=== PATIENT | male | born 1960 | race Caucasian/White ===

== ENCOUNTER 2018-04-04 10:36 | Emergency (ER) | payer SELFPAY ==
--- NOTE | 2018-04-04 10:48 | ED ---
Psychiatric Complaint - HPI Summary HPI Summary: A 57 y/o M presents to ED for MHE evaluation and SI. Patient states he is "at the end of his rope," and is under a lot of stress: his mother's CA returned, his father is chronically ill. Most stressing is his work situation. He was working two full-time jobs, but he was suspended from one of the jobs in March and was never told why. In July, that employer sent his record for further investigation but patient still did not have a cause for the suspension. In February, he went to court and the employer "apologized" and said his job "fell through the cracks." Due to the turmoil, pt fell behind no his bills, which he states he never has before. His car was repossessed. Patient says he is "trying to move on" but is having a hard-time emotionally and is depressed. He also had a friend commit suicide, and she had been staying with him recently. Patient had a niece who also committed suicide at some point. He was feeling angry at his friend, but is now understanding of why a person would commit suicide. He denies at SI but states being under pressure, and says he has nothing to live for and does not fear . Patient is not sleeping well, he's gotten 3 hours of sleep since three days ago. He's been drinking vodka and smoking marijuana to get to sleep. He is not eating. - History Of Current Complaint Time Seen by Provider: 04/04/18 10:40 Hx Obtained From: Patient Onset/Duration: Still Present Timing: Constant Severity Initially: Moderate Severity Currently: Severe Character: Depressed Aggravating Factor(s): Recent Stress Has Suicidal: Reports: Thoughts - Allergies/Home Medications Allergies/Adverse Reactions: Allergies Allergy/AdvReac Type Severity Reaction Status Date / Time cephalexin [From Keflex] Allergy Diaphoresis Verified 04/04/18 10:58 Unnamed Abx Allergy Diaphoresis Uncoded 04/04/18 10:58 Home Medications: Home Medications NK [No Home Medications Reported] 04/04/18 [History Confirmed 04/04/18] PMH/Surg Hx/FS Hx/Imm Hx Previously Healthy: Yes Sensory History: Denies: Hx Legally Blind Opthamlomology History: Denies: Hx Legally Blind EENT History: Denies: Hx Deafness Neurological History: Denies: Hx Dementia - Family History Known Family History: Positive: Other - multiple CA - Social History Occupation: Employed Part-time Lives: Alone Alcohol Amount: Vodka Hx Substance Use: Yes Substance Use Type: Reports: Marijuana Review of Systems Negative: Fever Negative: Cough Psychological: Other - pos: SI, not sleeping, not eating Positive: Depressed All Other Systems Reviewed And Are Negative: Yes Physical Exam - Summary Physical Exam Summary: VITAL SIGNS: Reviewed. GENERAL: Patient is a well-developed and nourished MALE who is lying comfortable in the stretcher. Patient is not in any acute respiratory distress. HEAD AND FACE: No signs of trauma. No ecchymosis, hematomas or skull depressions. No sinus tenderness. EYES: PERRLA, EOMI x 2, No injected conjunctiva, no nystagmus. EARS: Hearing grossly intact. Ear canals and tympanic membranes are within normal limits. MOUTH: Oropharynx within normal limits. NECK: Supple, trachea is midline, no adenopathy, no JVD, no carotid bruit, no c- spine tenderness, neck with full ROM. CHEST: Symmetric, no tenderness at palpation LUNGS: Clear to auscultation bilaterally. No wheezing or crackles. CVS: Regular rate and rhythm, S1 and S2 present, no murmurs or gallops appreciated. ABDOMEN: Soft, non-tender. No signs of distention. No rebound, no guarding, and no masses palpated. Bowel sounds are normal. EXTREMITIES: FROM in all major joints, no edema, no cyanosis or clubbing. NEURO: Alert and oriented x 3. No acute neurological deficits. Speech is normal and follows commands. SKIN: Dry and warm PSYCH: Depressed, crying at bedside. No homicidal thoughts or plan. No signs of psychosis or pressure speech. No tangential speech. Triage Information Reviewed: Yes Vital Signs Reviewed: Yes Diagnostics - Laboratory Result Diagrams: 04/04/18 10:54 04/04/18 10:54 Lab Statement: Any lab studies that have been ordered have been reviewed, and results considered in the medical decision making process. Course/Dx - Course Course Of Treatment: Pt is medically clear for MHE at 1106. Assessment/Plan: A 57 y/o M presents to ED for MHE evaluation and SI. Patient states he is "at the end of his rope," and is under a lot of stress: his mother' s CA returned, his father is chronically ill. Most stressing is his work situation. He was working two full-time jobs, but he was suspended from one of the jobs in March and was never told why. In July, that employer sent his record for further investigation but patient still did not have a cause for the suspension. In February, he went to court and the employer "apologized" and said his job "fell through the cracks." Due to the turmoil, pt fell behind no his bills, which he states he never has before. His car was repossessed. Patient says he is "trying to move on" but is having a hard-time emotionally and is depressed. He also had a friend commit suicide, and she had been staying with him recently. Patient had a niece who also committed suicide at some point. He was feeling angry at his friend, but is now understanding of why a person would commit suicide. He denies at SI but states being under pressure, and says he has nothing to live for and does not fear . Patient is not sleeping well, he's gotten 3 hours of sleep since three days ago. He's been drinking vodka and smoking marijuana to get to sleep. He is not eating. Blood work w/o a significant abnormality. He is medically cleared. He is awaiting for a MHE. Patient is hemodynamically stable and A+O x 3. Patient is signed out to Dr. Benson at shift change. - Differential Dx/Clinical Impression Differential Diagnosis/HQI/PQRI: Positive: Anxiety, Depression, Suicidal Ideation Provider Diagnosis: Depression, Anxiety, Suicidal ideation Discharge - Sign-Out/Discharge Documenting (check all that apply): Sign-Out Patient Signing out patient TO: Nader Benson - pending MHE - Discharge Plan Patient Education Materials: Depression (ED), Suicide Prevention (ED) Referrals: No Primary Care Phys,NOPCP [Primary Care Provider] - - Attestation Statements Document Initiated by Scribe: Yes Documenting Scribe: Omid Meeks Provider For Whom Scribe is Documenting (Include Credential): Dr. Wero Estrada MD Scribe Attestation: I, Omid Meeks, scribed for Dr. Wero Estrada MD on 04/05/18 at 0821. Scribe Documentation Reviewed: Yes Provider Attestation: The documentation as recorded by the scribe, Omid Meeks accurately reflects the service I personally performed and the decisions made by me, Dr. Wero Estrada MD
[2018-04-04 11:21] LABS: ABS Basophils 0 10^3/ul (0-0.2); ABS Eosinophils 0.1 10^3/ul (0-0.6); ABS Lymphocytes 1.3 10^3/ul (1.0-4.8); ABS Monocytes 0.4 10^3/ul (0-0.8); ABS Neutrophils 2.1 10^3/ul (1.5-7.7); ABS Nucleated RBC 0 10^3/ul; Eosinophil % 3.1 % (0-6); Hematocrit 41 % (42-52); Hemoglobin 13.6 g/dl (14.0-18.0); Lymphocyte % 33.2 % (25-47); Mean Corpuscular HGB Conc 34 g/dl (31-36); Mean Corpuscular Hemoglobin 32 pg (27-31); Mean Corpuscular Volume 94 fL (80-94); Mean Platelet Volume 8.3 um3 (7.4-10.4); Nucleated Red Blood Cells % 0.2; Platelet Count 175 10^3/ul (150-450); Red Blood Count 4.32 10^6/ul (4.00-5.40); Red Cell Distribution Width 14 % (10.5-15); White Blood Count 3.9 10^3/ul (3.5-10.8)
[2018-04-04 11:23] LABS: EGFR Non-African American 104.1 (>60)
[2018-04-04] MEDS ORDERED: Mouth Piece, Nicotine* 1 EACH CARTRIDGE INH PRN (14:04)
[2018-04-04] MEDS ORDERED: Nicotine Inhaler* 10 MG AMP INH ONE (14:04)
[2018-04-04 14:22] LABS: Urine Appearance Clear; Urine Blood Negative (Negative); Urine Color Yellow; Urine Ketones Negative (Negative); Urine Protein 1+(30 mg/dL) (Negative); Urine Red Blood Cell 3+(>10/hpf) (Absent); Urine Specific Gravity 1.024 (1.010-1.030); Urine Urobilinogen Negative (Negative); Urine White Blood Cell 3+(>20/hpf) (Absent)
[2018-04-04] MEDS ORDERED: Mouth Piece, Nicotine* 1 EACH CARTRIDGE ONE (14:45)
--- NOTE | 2018-04-04 23:49 | ED ---
Progress - Progress Note Progress Note: Patient was received as a sign out from Dr. Estrada to Dr. Benson at 1900 pending E. 0140 -- Suri Johnson states that she spoke to Dr. Benson about Dr. Beaulieu's review of the patient's case and plan to discharge at 2014. However, this is not the case. After reviewing patient's case, Dr. Benson would like a re- evaluation of the patient's mental health and his disposition plan. Patient will be signed out to Dr. Estrada at 0700 for shift change. - Consult/PCP Time Called: 14:00 Course/Dx - Course Course Of Treatment: Patient was received as a sign out from Dr. Estrada to Dr. Benson at 1900 pending E. 0140 -- Suri Johnson states that she spoke to Dr. Benson about Dr. Beaulieu's review of the patient's case and plan to discharge at 2014. However, this is not the case. After reviewing patient's case , Dr. Benson would like a re-evaluation of the patient's mental health and his disposition plan. Patient will be signed out to Dr. Estrada at 0700 for shift change. - Diagnoses Provider Diagnoses: Depression, Anxiety, Suicidal ideation Discharge - Sign-Out/Discharge Documenting (check all that apply): Sign-Out Patient Signing out patient TO: Wero Estrada Receiving patient FROM: Nader Benson - Discharge Plan Patient Education Materials: Depression (ED), Suicide Prevention (ED) Referrals: No Primary Care Phys,NOPCP [Primary Care Provider] - - Attestation Statements Document Initiated by Scribe: Yes Documenting Scribe: Duke Salinas Provider For Whom Brandoibshannon is Documenting (Include Credential): Nader Benson MD Scribe Attestation: Duke Mora , scribed for Nader Benson MD on 04/05/18 at 0641.
--- NOTE | 2018-04-05 09:25 | ED ---
Progress - Progress Note Progress Note: Receiving sign out from Dr. Benson. Patient will be discharged home by Dr. Zaldivar with a final diagnosis of depression. He is to follow up with [facility]. Course/Dx - Diagnoses Provider Diagnoses: Depression Discharge - Sign-Out/Discharge Documenting (check all that apply): Patient Departure - Discharge, Receiving Sign-Out Receiving patient FROM: Nader Benson - Discharge Plan Condition: Stable Disposition: HOME Patient Education Materials: Depression (ED), Suicide Prevention (ED) Referrals: [facility]YSICIAN REFERRAL [Outside] [facility] [[employer]BUSINESS, APPLICATION, OTHER] - - Attestation Statements Document Initiated by Scribe: Yes Documenting Scribe: Taylor Aleln Provider For Whom Scribe is Documenting (Include Credential): Wero Estrada MD Scribe Attestation: Taylor Mora, scribed for Wero Estrada MD on 04/05/18 at 0925.
[2018-04-05 09:57] VITALS: BP 152/93
== END 2018-04-05 09:55 | disposition home or self-care (01) ==
LOC: ED 10:36
DX: F32.9 Major depressive disorder, single episode, unspecified (principal); F41.9 Anxiety disorder, unspecified; R45.851 Suicidal ideations; Z88.3 Allergy status to other anti-infective agents
CPT/HCPCS: 36415; 80053; 80307; 80320; 80329; 81003; 81015; 84443; 85025; 87086; 99285; A9270-GY; G0480

== ENCOUNTER 2018-08-04 13:19 | Inpatient (IN) | payer OTHER ==
[2018-08-04 14:04] LABS: ABS Basophils 0 10^3/ul (0-0.2); ABS Eosinophils 0.3 10^3/ul (0-0.6); ABS Monocytes 0.9 10^3/ul (0-0.8); ABS Neutrophils 5.4 10^3/ul (1.5-7.7); ABS Nucleated RBC 0 10^3/ul; Eosinophil % 3.3 %; Hematocrit 27 % (42-52); Lymphocyte % 23.5 %; Mean Corpuscular HGB Conc 34 g/dl (31-36); Mean Corpuscular Hemoglobin 31 pg (27-31); Mean Corpuscular Volume 91 fL (80-94); Mean Platelet Volume 8.1 fL (7.4-10.4); Nucleated Red Blood Cells % 0; Platelet Count 185 10^3/ul (150-450); Red Blood Count 2.93 10^6/ul (4.00-5.40); Red Cell Distribution Width 14 % (10.5-15); White Blood Count 8.6 10^3/ul (3.5-10.8)
[2018-08-04 14:18] LABS: Activated Partial Thrombo Time 26.8 seconds (26.0-36.3); INR 1.06 (0.77-1.02)
[2018-08-04] MEDS ORDERED: NS 0.9% 1000 ML** 1,000 ML IV ONE (14:21)
[2018-08-04 14:24] LABS: Albumin 3.3 g/dL (3.2-5.2); BUN/Creatinine Ratio 23.6 (8-20); Calcium 8.4 mg/dL (8.6-10.3); EGFR African American 106.6 (>60); EGFR Non-African American 88.1 (>60); Globulin 3.2 g/dL (2-4); Total Bilirubin 0.2 mg/dL (0.2-1.0); Total Protein 6.5 g/dL (6.4-8.9)
--- NOTE | 2018-08-04 14:43 | ED ---
Abdominal Pain/Male - HPI Summary HPI Summary: 57 y/o incarcerated male presents today complaining of explosive diarrhea, abdominal pain and bright red blood per rectum. He states these symptoms started yesterday evening after court, though he does endorse noting mild abdominal soreness yesterday morning, which he had attributed to doing sit-ups. The had multiple episodes of bloody diarrhea through the night. He describes his BM as soft stool mixed with blood. He believes he was either having vivid dreams or hallucinations during the night as well. The diarrhea and the vivid dreams all resolved at 5:30am today. - History of Current Complaint Chief Complaint: EDGIBleed Stated Complaint: LOW BLOOD COUNT Time Seen by Provider: 08/04/18 13:50 Hx Obtained From: Patient Onset/Duration: Sudden Onset - last night at 7:00pm Timing: Intermittent Severity Initially: Moderate Severity Currently: None Pain Intensity: 0 Pain Scale Used: 0-10 Numeric Location: Diffuse Radiates: No Character: Dull Aggravating Factor(s): Other: - Now, just palpation of the abdomen causes pain Alleviating Factor(s): Nothing Associated Signs And Symptoms: Positive: Blood in Stool, Diarrhea. Negative: Fever, Constipation, Urinary Symptoms, Decreased Appetite, Nausea, Vomiting - Risk Factors Testicular Torsion: Negative Cardiac Risk Factors: Negative - Allergies/Home Medications Allergies/Adverse Reactions: Allergies Allergy/AdvReac Type Severity Reaction Status Date / Time cephalexin [From Keflex] Allergy Diaphoresis Verified 04/04/18 10:58 Unnamed Abx Allergy Diaphoresis Uncoded 04/04/18 10:58 PMH/Surg Hx/FS Hx/Imm Hx Previously Healthy: Yes - history of heavy alcohol consumption Endocrine/Hematology History: Denies: Hx Blood Disorders Sensory History: Denies: Hx Legally Blind, Hx Deafness Opthamlomology History: Denies: Hx Legally Blind Neurological History: Denies: Hx Dementia Psychiatric History: Reports: Hx of Violent Episodes Against Others Denies: Hx Eating Disorder Infectious Disease History: No Infectious Disease History: Denies: Traveled Outside the [place] in Last 30 Days - Family History Known Family History: Positive: Other - multiple CA - Social History Alcohol Use: None Alcohol Amount: Vodka Hx Substance Use: Yes Substance Use Type: Reports: Marijuana Smoking Status (MU): Former Smoker Review of Systems Negative: Fever, Chills Negative: Sore Throat Negative: Palpitations, Chest Pain Negative: Shortness Of Breath, Cough Positive: Abdominal Pain, Diarrhea. Negative: Vomiting, Nausea Negative: dysuria, hematuria, pain All Other Systems Reviewed And Are Negative: Yes Physical Exam Triage Information Reviewed: Yes Vital Signs On Initial Exam: Initial Vitals Temp Pulse Resp BP Pulse Ox 97.8 F 89 18 95/64 100 08/04/18 13:21 08/04/18 13:21 08/04/18 13:21 08/04/18 13:21 08/04/18 13:21 Vital Signs Reviewed: Yes Appearance: Positive: Well-Appearing Skin: Positive: Warm, Skin Color Reflects Adequate Perfusion, Dry Head/Face: Positive: Normal Head/Face Inspection Eyes: Positive: Normal, EOMI, Conjunctiva Clear. Negative: Discharge ENT: Positive: Normal ENT inspection. Negative: Nasal congestion, Nasal drainage, Muffled voice, Hoarse voice Neck: Positive: Supple, Nontender, No Lymphadenopathy. Negative: Nuchal Rigidity Respiratory/Lung Sounds: Positive: Clear to Auscultation, Breath Sounds Present. Negative: Rales, Rhonchi, Wheezes Cardiovascular: Positive: RRR. Negative: Murmur Abdomen Description: Positive: Soft, Other: - tenderness on the left side, worse in the LLQ. Rectal exam reveals normal tone and black speckled stool. Negative: Distended Bowel Sounds: Positive: Present Musculoskeletal: Positive: Normal, Strength/ROM Intact Neurological: Positive: Normal, Sensory/Motor Intact, Alert, Oriented to Person Place, Time, CN Intact II-III Psychiatric: Positive: Normal, Affect/Mood Appropriate Diagnostics - Vital Signs Vital Signs Temp Pulse Resp BP Pulse Ox 08/04/18 13:21 97.8 F 89 18 95/64 100 - Laboratory Lab Results: Lab Results 08/04/18 08/04/18 08/04/18 Range/Units 13:49 13:49 13:49 WBC 8.6 (3.5-10.8) 10^3/ul RBC 2.93 L (4.00-5.40) 10^6/ul Hgb 9.0 L (14.0-18.0) g/dl Hct 27 L (42-52) % MCV 91 (80-94) fL MCH 31 (27-31) pg MCHC 34 (31-36) g/dl RDW 14 (10.5-15) % Plt Count 185 (150-450) 10^3/ul MPV 8.1 (7.4-10.4) fL Neut % (Auto) 63.0 % Lymph % (Auto) 23.5 % [place] % (Auto) 10.0 % Eos % (Auto) 3.3 % Baso % (Auto) 0.2 % Absolute Neuts (auto) 5.4 (1.5-7.7) 10^3/ul Absolute Lymphs (auto) 2.0 (1.0-4.8) 10^3/ul Absolute Monos (auto) 0.9 H (0-0.8) 10^3/ul Absolute Eos (auto) 0.3 (0-0.6) 10^3/ul Absolute Basos (auto) 0 (0-0.2) 10^3/ul Absolute Nucleated RBC 0 10^3/ul Nucleated RBC % 0 INR (Anticoag Therapy) 1.06 H (0.77-1.02) APTT 26.8 (26.0-36.3) seconds Sodium 139 (135-145) mmol/L Potassium 4.0 (3.5-5.0) mmol/L Chloride 107 (101-111) mmol/L Carbon Dioxide 29 (22-32) mmol/L Anion Gap 3 (2-11) mmol/L BUN 21 (6-24) mg/dL Creatinine 0.89 (0.67-1.17) mg/dL Est GFR ( Amer) 106.6 (>60) Est GFR (Non-Af Amer) 88.1 (>60) BUN/Creatinine Ratio 23.6 H (8-20) Glucose 119 H (70-100) mg/dL Calcium 8.4 L (8.6-10.3) mg/dL Total Bilirubin 0.20 (0.2-1.0) mg/dL AST 14 (13-39) U/L ALT 15 (7-52) U/L Alkaline Phosphatase 66 (34-104) U/L Total Protein 6.5 (6.4-8.9) g/dL Albumin 3.3 (3.2-5.2) g/dL Globulin 3.2 (2-4) g/dL Albumin/Globulin Ratio 1.0 (1-3) Result Diagrams: 08/04/18 13:49 08/04/18 13:49 Lab Statement: Any lab studies that have been ordered have been reviewed, and results considered in the medical decision making process. Re-Evaluation - Re-Evaluation Second Eval Change: Unchanged Abdominal Pain Fem Course/Dx - Course Course Of Treatment: Per radiology, CT abd/pelvis revealed diverticulitis. Looking at pt's history, his HB acutely dropped from 13's to 9.4 this am to 9.0 here in the ED. Patient was treated with Cipro and Flagyl IV, and admitted to the hospitalist service for diverticulitis and diverticular bleeding. This was discussed with the patient, who agrees with this plan. Assessment/Plan: Assessment: 1. Diverticulitis. 2. GI bleed. 3. acute anemia. Plan: IV antibiotics and admit to hospitalist service. - Diagnoses Differential Diagnosis/HQI/PQRI: Diverticulitis, Other - GI bleed Provider Diagnoses: Diverticulitis, GI bleed, Anemia Is Visit Related: No - Provider Notifications Discussed Care Of Patient With: Lida Nguyen - agrees to admission Time Discussed With Above Provider: 16:56 Instructed by Provider To: Admit As Observation Admit/Transition Orders Completed By ED Provider: No Discharge - Sign-Out/Discharge Documenting (check all that apply): Patient Departure - Discharge Plan Condition: Stable Disposition: ADMITTED TO [facility] Referrals: No Primary Care Phys,NOPCP [Primary Care Provider] - - Billing Disposition and Condition Condition: STABLE Disposition: Admitted to [facility]
[2018-08-04] MEDS ORDERED: Iohexol 300* (CONTRAST) 10 ML SDV IV ONE (14:47)
[2018-08-04] MEDS ORDERED: Nicotine Inhaler* 10 MG AMP INH ONE (15:38)
[2018-08-04] MEDS ORDERED: Mouth Piece, Nicotine* 1 EACH CARTRIDGE ONE (16:01)
[2018-08-04] MEDS ORDERED: Ciprofloxacin 400MG IVPREMIX(* 400 MG/200 ML BAG IVPB ONE (16:26)
[2018-08-04] MEDS ORDERED: metroNIDAZOLE IV 500 MG/100ML* 500 MG/100 ML BAG IVPB ONE (16:26)
[2018-08-04 17:30] LABS: Urine Appearance Clear; Urine Bacteria Absent (Absent); Urine Bilirubin Negative (Negative); Urine Blood Negative (Negative); Urine Color Yellow; Urine Glucose Negative (Negative); Urine Ketones Negative (Negative); Urine Nitrite Negative (Negative); Urine Protein Negative (Negative); Urine Red Blood Cell 1+(3-5/hpf) (Absent); Urine Specific Gravity 1.041 (1.010-1.030); Urine Squamous Epithelial Cell Present (Absent); Urine Urobilinogen Negative (Negative); Urine White Blood Cell 1+(6-10/hpf) (Absent)
[2018-08-04] MEDS ORDERED: Acetaminophen TAB* 325 MG PO PRN (18:00)
[2018-08-04] MEDS ORDERED: Mouth Piece, Nicotine* 1 EACH CARTRIDGE INH ONE (19:00)
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
[2018-08-04 21:32] LABS: Hematocrit 22 % (42-52); Hemoglobin 7.5 g/dl (14.0-18.0)
[2018-08-05 02:14] LABS: Hematocrit 22 % (42-52); Hemoglobin 7.3 g/dl (14.0-18.0)
[2018-08-05] MEDS: metroNIDAZOLE IV 500 MG/100ML* 500 MG/100 ML BAG IVPB SCH ×3 (02:17→17:38)
[2018-08-05] MEDS: Ciprofloxacin 400MG IVPREMIX(* 400 MG/200 ML BAG IVPB SCH ×2 (03:50→16:19)
[2018-08-05 06:31] LABS: ABS Basophils 0 10^3/ul (0-0.2); ABS Eosinophils 0.3 10^3/ul (0-0.6); ABS Lymphocytes 2.2 10^3/ul (1.0-4.8); ABS Monocytes 0.5 10^3/ul (0-0.8); ABS Neutrophils 2.4 10^3/ul (1.5-7.7); ABS Nucleated RBC 0 10^3/ul; Eosinophil % 5.8 %; Hematocrit 22 % (42-52); Hemoglobin 7.5 g/dl (14.0-18.0); Lymphocyte % 40.9 %; Mean Corpuscular HGB Conc 34 g/dl (31-36); Mean Corpuscular Hemoglobin 31 pg (27-31); Mean Corpuscular Volume 91 fL (80-94); Mean Platelet Volume 7.7 fL (7.4-10.4); Nucleated Red Blood Cells % 0.1; Platelet Count 155 10^3/ul (150-450); Red Blood Count 2.42 10^6/ul (4.00-5.40); Red Cell Distribution Width 14 % (10.5-15); White Blood Count 5.5 10^3/ul (3.5-10.8)
[2018-08-05 06:47] LABS: BUN/Creatinine Ratio 17.1 (8-20); Calcium 8.1 mg/dL (8.6-10.3); EGFR African American 127.9 (>60); EGFR Non-African American 105.7 (>60); Potassium 3.8 mmol/L (3.5-5.0)
--- NOTE | 2018-08-05 09:11 | PN ---
Subjective Date of Service: 08/05/18 Interval History: 57 yo male, seen and examined at bedside. He just finished breakfast, denies any abdominal pain, n/v, fever/chills, CP, SOB. Had an episode of dizziness this morning in the shower. No further bleeding episodes overnight. Reports history of heavy alcohol use, though none recently while in care home. Continues to endorse LLQ pain, especially with palpation. Family History: Unchanged from Admission Social History: Unchanged from Admission Past Medical History: Unchanged from Admission Objective Active Medications: Acetaminophen (Tylenol Tab*) 650 mg PO Q4H PRN PRN Reason: FEVER/PAIN Ciprofloxacin/Dextrose (Cipro 400 Mg Ivpremix(*)) 400 mg in 200 mls @ 200 mls/ hr IVPB Q12H [facility] Last Admin: 08/05/18 03:50 Dose: 200 mls/hr Metronidazole/Sodium Chloride (Flagyl 500 Mg Ivpb*) 500 mg in 100 mls @ 100 mls /hr IVPB Q8H [facility] Last Admin: 08/05/18 02:17 Dose: 100 mls/hr Nicotine (Nicotine Inhaler*) 10 mg INH Q2H PRN PRN Reason: CRAVING Vital Signs - 8 hr 08/05/18 03:10 Temperature 98.0 F Pulse Rate 86 Respiratory 16 Rate Blood Pressure 122/73 (mmHg) O2 Sat by Pulse 100 Oximetry Oxygen Devices in Use Now: None Appearance: Male patient, lying in bed, pleasant, NAD Eyes: No Scleral Icterus, PERRLA Ears/Nose/Mouth/Throat: Clear Oropharnyx, Mucous Membranes Moist Neck: NL Appearance and Movements; NL JVP Respiratory: Symmetrical Chest Expansion and Respiratory Effort, Clear to Auscultation Cardiovascular: NL Sounds; No Murmurs; No JVD, RRR Abdominal: - - BS present, LLQ pain with palpation Extremities: No Edema, No Clubbing, Cyanosis Skin: No Rash or Ulcers Neurological: Alert and Oriented x 3, NL Muscle Strength and Tone Lines/Tubes/Other Access: Clean, Dry and Intact Peripheral IV Nutrition: Taking PO's Result Diagrams: 08/05/18 14:13 08/05/18 06:14 Additional Lab and Data: Lab Results 08/04/18 08/04/18 08/04/18 Range/Units 13:49 13:49 13:49 WBC 8.6 (3.5-10.8) 10^3/ul RBC 2.93 L (4.00-5.40) 10^6/ul Hgb 9.0 L (14.0-18.0) g/dl Hct 27 L (42-52) % MCV 91 (80-94) fL MCH 31 (27-31) pg MCHC 34 (31-36) g/dl RDW 14 (10.5-15) % Plt Count 185 (150-450) 10^3/ul MPV 8.1 (7.4-10.4) fL Neut % (Auto) 63.0 % Lymph % (Auto) 23.5 % [place] % (Auto) 10.0 % Eos % (Auto) 3.3 % Baso % (Auto) 0.2 % Absolute Neuts (auto) 5.4 (1.5-7.7) 10^3/ul Absolute Lymphs (auto) 2.0 (1.0-4.8) 10^3/ul Absolute Monos (auto) 0.9 H (0-0.8) 10^3/ul Absolute Eos (auto) 0.3 (0-0.6) 10^3/ul Absolute Basos (auto) 0 (0-0.2) 10^3/ul Absolute Nucleated RBC 0 10^3/ul Nucleated RBC % 0 INR (Anticoag Therapy) 1.06 H (0.77-1.02) APTT 26.8 (26.0-36.3) seconds Sodium 139 (135-145) mmol/L Potassium 4.0 (3.5-5.0) mmol/L Chloride 107 (101-111) mmol/L Carbon Dioxide 29 (22-32) mmol/L Anion Gap 3 (2-11) mmol/L BUN 21 (6-24) mg/dL Creatinine 0.89 (0.67-1.17) mg/dL Est GFR ( Amer) 106.6 (>60) Est GFR (Non-Af Amer) 88.1 (>60) BUN/Creatinine Ratio 23.6 H (8-20) Glucose 119 H (70-100) mg/dL Calcium 8.4 L (8.6-10.3) mg/dL Total Bilirubin 0.20 (0.2-1.0) mg/dL AST 14 (13-39) U/L ALT 15 (7-52) U/L Alkaline Phosphatase 66 (34-104) U/L Total Protein 6.5 (6.4-8.9) g/dL Albumin 3.3 (3.2-5.2) g/dL Globulin 3.2 (2-4) g/dL Albumin/Globulin Ratio 1.0 (1-3) Microbiology and Other Data: Microbiology 08/04/18 16:19 Stool Occult Blood (STEPHANIE) - Final Stool Assess/Plan/Problems-Billing Assessment: Mr. Mahmood is a 57 yo male with a history of depression who presented to the ED on 08/04/18 with concern for abdominal pain and rectal bleeding; CT revealed concern for acute diverticulitis. - Patient Problems (1) Diverticulitis Code(s): K57.92 - DVTRCLI OF INTEST, PART UNSP, W/O PERF OR ABSCESS W/O BLEED Comment: Continue ciprofloxacin and metronidazole Tolerating PO intake Appreciate GI consult Continue to monitor for GIB (2) Gastrointestinal bleeding Code(s): K92.2 - GASTROINTESTINAL HEMORRHAGE, UNSPECIFIED Comment: Likely diverticular HH in the 7s but patient is mostly asymptomatic; if dizziness persists, will discuss transfusion. No further bleeding episodes Continue close monitoring (3) Depression Code(s): F32.9 - MAJOR DEPRESSIVE DISORDER, SINGLE EPISODE, UNSPECIFIED Comment: Continue supportive care Will try to obtain doses of Seroquel and Trintellix Pt denies SI or concerning symptoms at this time. (4) Alcohol use disorder Comment: Admits to heavy alcohol use, feels this could be a problem We discussed risks and health consequences of heavy drinking, as well as effect on GI tract. (5) DVT prophylaxis Comment: SCDs ordered No chemoprophylaxis with acute hemorrhage Status and Disposition: OBV admit. Discharge when medically stable.
[2018-08-05 14:44] LABS: Hematocrit 22 % (42-52); Hemoglobin 7.5 g/dl (14.0-18.0)
[2018-08-05] MEDS: Nicotine Inhaler* 10 MG AMP INH PRN (18:14)
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
[2018-08-06] MEDS: metroNIDAZOLE IV 500 MG/100ML* 500 MG/100 ML BAG IVPB SCH (01:48)
[2018-08-06] MEDS: Ciprofloxacin 400MG IVPREMIX(* 400 MG/200 ML BAG IVPB SCH (04:04)
[2018-08-06 06:58] LABS: ABS Basophils 0 10^3/ul (0-0.2); ABS Eosinophils 0.4 10^3/ul (0-0.6); ABS Lymphocytes 2.4 10^3/ul (1.0-4.8); ABS Monocytes 0.6 10^3/ul (0-0.8); ABS Neutrophils 2.2 10^3/ul (1.5-7.7); ABS Nucleated RBC 0 10^3/ul; Eosinophil % 6.9 %; Hematocrit 24 % (42-52); Hemoglobin 8.1 g/dl (14.0-18.0); Lymphocyte % 42.7 %; Mean Corpuscular HGB Conc 33 g/dl (31-36); Mean Corpuscular Hemoglobin 31 pg (27-31); Mean Corpuscular Volume 91 fL (80-94); Mean Platelet Volume 8.1 fL (7.4-10.4); Nucleated Red Blood Cells % 0.1; Platelet Count 180 10^3/ul (150-450); Red Blood Count 2.64 10^6/ul (4.00-5.40); Red Cell Distribution Width 14 % (10.5-15); White Blood Count 5.6 10^3/ul (3.5-10.8)
[2018-08-06 07:16] LABS: Calcium 8.7 mg/dL (8.6-10.3)
[2018-08-06 07:21] LABS: BUN/Creatinine Ratio 16.5 (8-20); EGFR African American 103.9 (>60); EGFR Non-African American 85.9 (>60)
--- NOTE | 2018-08-06 09:47 | PN ---
Subjective Date of Service: 08/06/18 Interval History: Has a headache this morning and reports a BM last night that was dark in color. Abd pain is slightly better, tolerating regular diet. Denies dizziness, CP, SOB , fever/chills. Family History: Unchanged from Admission Social History: Unchanged from Admission Past Medical History: Unchanged from Admission Objective Active Medications: Acetaminophen (Tylenol Tab*) 650 mg PO Q4H PRN PRN Reason: FEVER/PAIN Ciprofloxacin (Cipro Tab*) 500 mg PO Q12HR [facility] Metronidazole (Flagyl Tab*) 500 mg PO TID DAN[facility] Nicotine (Nicotine Inhaler*) 10 mg INH Q2H PRN PRN Reason: CRAVING Last Admin: 08/05/18 18:14 Dose: 10 mg Vital Signs - 8 hr 08/06/18 03:12 Temperature 98.1 F Pulse Rate 71 Respiratory 17 Rate Blood Pressure 107/48 (mmHg) O2 Sat by Pulse 100 Oximetry Oxygen Devices in Use Now: None Appearance: Middle aged male, lying in bed, NAD Eyes: PERRLA Ears/Nose/Mouth/Throat: Clear Oropharnyx, Mucous Membranes Moist Neck: NL Appearance and Movements; NL JVP Respiratory: Symmetrical Chest Expansion and Respiratory Effort, Clear to Auscultation Cardiovascular: NL Sounds; No Murmurs; No JVD, RRR Abdominal: - - BS+, tender to palpation over LLQ Extremities: No Edema, No Clubbing, Cyanosis Skin: No Rash or Ulcers Neurological: Alert and Oriented x 3, NL Muscle Strength and Tone Lines/Tubes/Other Access: Clean, Dry and Intact Peripheral IV Nutrition: Taking PO's Result Diagrams: 08/06/18 06:38 08/06/18 06:38 Additional Lab and Data: Lab Results 08/04/18 08/04/18 08/04/18 Range/Units 13:49 13:49 13:49 WBC 8.6 (3.5-10.8) 10^3/ul RBC 2.93 L (4.00-5.40) 10^6/ul Hgb 9.0 L (14.0-18.0) g/dl Hct 27 L (42-52) % MCV 91 (80-94) fL MCH 31 (27-31) pg MCHC 34 (31-36) g/dl RDW 14 (10.5-15) % Plt Count 185 (150-450) 10^3/ul MPV 8.1 (7.4-10.4) fL Neut % (Auto) 63.0 % Lymph % (Auto) 23.5 % [place] % (Auto) 10.0 % Eos % (Auto) 3.3 % Baso % (Auto) 0.2 % Absolute Neuts (auto) 5.4 (1.5-7.7) 10^3/ul Absolute Lymphs (auto) 2.0 (1.0-4.8) 10^3/ul Absolute Monos (auto) 0.9 H (0-0.8) 10^3/ul Absolute Eos (auto) 0.3 (0-0.6) 10^3/ul Absolute Basos (auto) 0 (0-0.2) 10^3/ul Absolute Nucleated RBC 0 10^3/ul Nucleated RBC % 0 INR (Anticoag Therapy) 1.06 H (0.77-1.02) APTT 26.8 (26.0-36.3) seconds Sodium 139 (135-145) mmol/L Potassium 4.0 (3.5-5.0) mmol/L Chloride 107 (101-111) mmol/L Carbon Dioxide 29 (22-32) mmol/L Anion Gap 3 (2-11) mmol/L BUN 21 (6-24) mg/dL Creatinine 0.89 (0.67-1.17) mg/dL Est GFR ( Amer) 106.6 (>60) Est GFR (Non-Af Amer) 88.1 (>60) BUN/Creatinine Ratio 23.6 H (8-20) Glucose 119 H (70-100) mg/dL Calcium 8.4 L (8.6-10.3) mg/dL Total Bilirubin 0.20 (0.2-1.0) mg/dL AST 14 (13-39) U/L ALT 15 (7-52) U/L Alkaline Phosphatase 66 (34-104) U/L Total Protein 6.5 (6.4-8.9) g/dL Albumin 3.3 (3.2-5.2) g/dL Globulin 3.2 (2-4) g/dL Albumin/Globulin Ratio 1.0 (1-3) Microbiology and Other Data: Microbiology 08/04/18 16:19 Stool Occult Blood (STEPHANIE) - Final Stool Assess/Plan/Problems-Billing Assessment: Mr. Mahmood is a 57 yo male with a history of depression who presented to the ED on 08/04/18 with concern for abdominal pain and rectal bleeding; CT revealed concern for acute diverticulitis. - Patient Problems (1) Diverticulitis Code(s): K57.92 - DVTRCLI OF INTEST, PART UNSP, W/O PERF OR ABSCESS W/O BLEED Comment: Continue ciprofloxacin and metronidazole - switch to PO Tolerating PO intake Appreciate GI consult Continue to monitor for GIB (2) Gastrointestinal bleeding Code(s): K92.2 - GASTROINTESTINAL HEMORRHAGE, UNSPECIFIED Comment: Likely diverticular HH improved, now 8.07/28 Reports dark stool but HH does not reflect further blood loss Will need outpatient colonoscopy (3) Depression Code(s): F32.9 - MAJOR DEPRESSIVE DISORDER, SINGLE EPISODE, UNSPECIFIED Comment: Continue supportive care Should resume Seroquel and Trintellix as outpatient when possile Pt denies SI or concerning symptoms at this time. (4) Alcohol use disorder Comment: Admits to heavy alcohol use, feels this could be a problem We discussed risks and health consequences of heavy drinking, as well as effect on GI tract. (5) DVT prophylaxis Comment: SCDs ordered No chemoprophylaxis with acute hemorrhage Status and Disposition: Inpatient admission. Discharge to fdc, tentatively tomorrow. Will need to be discharged with 1.5 days worth of antibiotics to ensure continuity of abx therapy. Attending: Rick King
[2018-08-06] MEDS: metroNIDAZOLE TAB* 250 MG PO SCH ×3 (10:59→19:49)
--- NOTE | 2018-08-06 11:23 | PN ---
Progress Note - Progress Note Date of Service: 08/06/18 Note: GI fu doing well, minimal pain, "better than when i came in"; no bleeding; tolerating reg diet VS; 98.3, 109/52, 63, 18, 100% nad, alert, pleasant +bs, soft, slight LLQ tenderness, no RG wbc 5.6, hgb up to 8l.1 from 7.5 tolerating oral abx, oral food no s/s bleeding getting better 14 d abx will need colonscopy as outpt in 8 wks Ab Henriquez MD [facility] [phone]
[2018-08-06] MEDS: Ferrous Sulfate TAB* 325 MG PO SCH (17:09)
[2018-08-06] MEDS: Ciprofloxacin TAB* 500 MG PO SCH (17:10)
[2018-08-06] MEDS: Nicotine Inhaler* 10 MG AMP INH PRN (17:10)
--- NOTE | 2018-08-06 20:18 | DS ---
CC: [facility].* DISCHARGE SUMMARY: DATE OF ADMISSION: 08/04/18 ANTICIPATED DATE OF DISCHARGE: 08/07/18 PROVIDER: Jude Buckner NP ATTENDING PHYSICIAN: Dr.John-Paul Ming King * (as dictated by Jude Buckner NP ). CONSULTING PHYSICIAN: Dr. Henriquez from Gastroenterology. PRIMARY CARE PROVIDER: None. The patient is currently a resident at [facility]. PRIMARY DISCHARGE DIAGNOSES: 1. Diverticulitis. 2. Gastrointestinal bleeding. 3. Acute blood loss anemia. SECONDARY DISCHARGE DIAGNOSES: 1. Alcohol use disorder. 2. Depression. MEDICATIONS AT DISCHARGE: 1. Acetaminophen 650 mg q.4 hours p.r.n. pain or fever. 2. Ferrous sulfate 325 mg daily. 3. Ciprofloxacin 500 mg q.12 hours x 12 additional days. 4. Metronidazole 500 mg t.i.d. x12 additional days. The patient will be dispensed with 1-1/2 day supply for Wednesday and Wednesday until the longterm is able to procure medications through their normal pharmacy. HOSPITAL COURSE OF STAY: For full details, please refer to the H and P provided by Nerissa Augustin NP on 08/04/18. In summary, Mr. Mahmood is a 57-year-old gentleman who presented to the emergency room with concern of rectal bleeding with several loose bowel movements. He also reported left lower quadrant abdominal pain. A CT scan revealed extensive diverticulosis with pericolonic inflammatory changes along the sigmoid colon suggestive of acute diverticulitis without loculated fluid collection to suggest abscess, enlarged prostate, multiple pancreatic calcifications suggestive of chronic pancreatitis. He was admitted to the medicine floor and started on ciprofloxacin and Flagyl. He has had no further bleeding episodes, though he did report one dark stool. His H and H has remained stable and had a slight improvement just prior to discharge. He did not require packed red blood cell transfusion. He luque been able to tolerate a regular diet. He was seen in consultation by Gastroenterology. Ultimately, he is recommended to switch from IV to oral antibiotics, which he has tolerated, and recommended to follow up with GI so that a colonoscopy could be arranged in an eight week period from now. This was communicated with Mr. Mahmood. Mr. Mahmood did have some hesitancy regarding colonoscopy but is open to the consult as an outpatient. With regard to his history of depression, he has been off of his Seroquel and Trintellix and we are unable to confirm these dosing prior to discharge. He should resume the medication when able and upon release from the longterm, he should follow up with Mental Health. OUTPATIENT FOLLOWUP NEEDS: Mr. Mahmood should be examined by the facility physician within next 1 to 3 days. Additionally, he will need to complete 12 more days of antibiotics to fully treat his diverticulitis. He will also need a followup Gastroenterology appointment with Dr. Henriquez's office which will include a colonoscopy in 8 weeks. DIET: As tolerated. ACTIVITY: As tolerated. CONDITION: Improved, stable. DISPOSITION: The patient will be discharged in the custody of the commercial account officer at the [facility]. TIME SPENT: Approximately 40 minutes was spent on this discharge. Again, this is only a brief summary of the patient's hospital course of stay. For full details, please refer to the full medical record. If you have any further questions or concerns, please feel free to contact me at [phone] JUDE BUCKNER, WILFRED [id number]/[facility] #: [id number] ARABELLA
[2018-08-07] MEDS: Ciprofloxacin TAB* 500 MG PO SCH (06:04)
[2018-08-07 06:39] LABS: ABS Basophils 0 10^3/ul (0-0.2); ABS Eosinophils 0.4 10^3/ul (0-0.6); ABS Lymphocytes 2.2 10^3/ul (1.0-4.8); ABS Monocytes 0.6 10^3/ul (0-0.8); ABS Nucleated RBC 0 10^3/ul; Eosinophil % 6.6 %; Hematocrit 24 % (42-52); Hemoglobin 8.1 g/dl (14.0-18.0); Lymphocyte % 35.5 %; Mean Corpuscular HGB Conc 33 g/dl (31-36); Mean Corpuscular Hemoglobin 30 pg (27-31); Mean Corpuscular Volume 90 fL (80-94); Mean Platelet Volume 7.5 fL (7.4-10.4); Nucleated Red Blood Cells % 0.1; Platelet Count 231 10^3/ul (150-450); Red Cell Distribution Width 14 % (10.5-15); White Blood Count 6.2 10^3/ul (3.5-10.8)
[2018-08-07] MEDS: metroNIDAZOLE TAB* 250 MG PO SCH (09:36)
[2018-08-07] MEDS: Ferrous Sulfate TAB* 325 MG PO SCH (09:37)
[2018-08-07 13:21] VITALS: BP 131/64
== END 2018-08-07 13:25 | DRG 244 ==
LOC: ED 13:19 → EEVIPCON 18:00 → MED 18:00 → OBSVTOIN 08-06 12:37
PROVIDERS: ADMIT Internal Medicine; ATTEND Internal Medicine
DX: K57.33 Diverticulitis of large intestine without perforation or abscess with bleeding (principal); D62 Acute posthemorrhagic anemia; F32.9 Major depressive disorder, single episode, unspecified; F10.20 Alcohol dependence, uncomplicated; F17.210 Nicotine dependence, cigarettes, uncomplicated; Z79.899 Other long term (current) drug therapy; Z88.8 Allergy status to other drugs, medicaments and biological substances; Z82.49 Family history of ischemic heart disease and other diseases of the circulatory system; Z83.3 Family history of diabetes mellitus; Z80.3 Family history of malignant neoplasm of breast
CPT/HCPCS: 36415; 74177; 80048; 80053; 81003; 81015; 82272; 83605; 83690; 85014; 85018; 85025; 85610; 85730; 87086; 99283; A9270-GY; G0378; J0744; J3490; Q9967

== ENCOUNTER 2021-12-31 08:36 | Observation (INO) ==
[2021-12-31] MEDS ORDERED: NS 0.9% 1000 ml BAG 1,000 ML IV ONE (08:43)
[2021-12-31 09:22] LABS: ABS Eosinophils 0.1 10^3/ul (0-0.6); ABS Lymphocytes 1.2 10^3/ul (1.0-4.8); ABS Monocytes 0.4 10^3/ul (0-0.8); ABS Neutrophils 3.8 10^3/ul (1.5-7.7); Eosinophil % 1.9 %; Hematocrit 17 % (42-52); Hemoglobin 5.7 g/dL (14.0-18.0); Lymphocyte % 21.6 %; Mean Corpuscular HGB Conc 33 g/dL (31-36); Mean Corpuscular Hemoglobin 33 pg (27-31); Mean Corpuscular Volume 100 fL (80-94); Mean Platelet Volume 7.1 fL (7.4-10.4); Nucleated Red Blood Cells % 0.3; Platelet Count 254 10^3/uL (150-450); Red Blood Count 1.74 10^6 /uL (4.18-5.48); Red Cell Distribution Width 16 % (10-15); White Blood Count 5.5 10^3/uL (3.5-10.8)
[2021-12-31 09:51] LABS: ALT 16 U/L (7-52); AST 18 U/L (13-39); Albumin 2.9 g/dL (3.2-5.2); Albumin/Globulin Ratio 1.2 (1-3); Alcohol, S < 13 mg/dL (<13); Alkaline Phosphatase 57 U/L (35-149); Anion Gap 6 mmol/L (2-11); Blood Urea Nitrogen 22 mg/dL (6-24); CO2 Carbon Dioxide 24 mmol/L (22-32); Calcium 8.1 mg/dL (8.6-10.3); Chloride 109 mmol/L (101-111); Globulin 2.4 g/dL (2-4); Glucose 98 mg/dL (70-100); Magnesium 1.7 mg/dL (1.9-2.7); Potassium 4.1 mmol/L (3.5-5.0); Sodium 139 mmol/L (135-145); Total Protein 5.3 g/dL (6.4-8.9); eGFR CKD-EPI 73.2 (>60)
[2021-12-31] MEDS ORDERED: Lorazepam PYXIS KEY PRN (10:21)
[2021-12-31] MEDS ORDERED: LORazepam 2 mg VIAL 1 ml IV PUSH ONE ×2 (10:21→19:39)
[2021-12-31] MEDS ORDERED: Iohexol 350 (CONTRAST) 500 ML MDV IV ONE (10:33)
[2021-12-31 10:53] LABS: High Sens Troponin Baseline 7 pg/mL (<20)
[2021-12-31 10:54] LABS: High Sensitivity Troponin 1 Hr 6 pg/mL (<20)
[2021-12-31] MEDS ORDERED: Magnesium Sulfate 2 gm BAG 2 GM/50 ML BAG IVPB ONE (11:18)
[2021-12-31 14:18] LABS: Urine Appearance Clear; Urine Bilirubin Negative (Negative); Urine Blood Negative (Negative); Urine Color Yellow; Urine Glucose Negative (Negative); Urine Ketones Negative (Negative); Urine Nitrite Negative (Negative); Urine Protein Negative (Negative); Urine Specific Gravity 1.033 (1.002-1.030); Urine Urobilinogen Negative (Negative)
[2021-12-31] MEDS ORDERED: Nicotine PATCH 21 MG/24 HR PATCH TRANSDERM SCH (20:00)
[2021-12-31] MEDS ORDERED: D5W 1000 ml BAG 1,000 ML IV SCH (20:00)
[2021-12-31 20:29] LABS: Hematocrit 22 % (42-52)
[2022-01-01 00:10] LABS: Hematocrit 26 % (42-52); Hemoglobin 8.4 g/dL (14.0-18.0)
[2022-01-01] MEDS ORDERED: Nicotine GUM 4MG FRUIT FLAVOR PO PRN (00:14)
[2022-01-01 05:40] LABS: ABS Eosinophils 0.2 10^3/ul (0-0.6); ABS Lymphocytes 1.3 10^3/ul (1.0-4.8); ABS Monocytes 0.4 10^3/ul (0-0.8); ABS Neutrophils 2.8 10^3/ul (1.5-7.7); Eosinophil % 4.4 %; Hematocrit 22 % (42-52); Hemoglobin 7.4 g/dL (14.0-18.0); Lymphocyte % 27.9 %; Mean Corpuscular HGB Conc 33 g/dL (31-36); Mean Corpuscular Hemoglobin 32 pg (27-31); Mean Corpuscular Volume 96 fL (80-94); Mean Platelet Volume 7.3 fL (7.4-10.4); Nucleated Red Blood Cells % 0.1; Platelet Count 225 10^3/uL (150-450); Red Blood Count 2.34 10^6 /uL (4.18-5.48); Red Cell Distribution Width 15 % (10-15); White Blood Count 4.7 10^3/uL (3.5-10.8)
[2022-01-01 06:11] LABS: Albumin 2.6 g/dL (3.2-5.2); Albumin/Globulin Ratio 1.2 (1-3); Calcium 7.3 mg/dL (8.6-10.3); Direct Bilirubin 0.1 mg/dL (0.03-0.18); Globulin 2.1 g/dL (2-4); Indirect Bilirubin 0.2 mg/dL (0.3-1.0); Potassium 4.1 mmol/L (3.5-5.0); Total Bilirubin 0.3 mg/dL (0.2-1.0); Total Protein 4.7 g/dL (6.4-8.9); eGFR CKD-EPI 91.1 (>60)
[2022-01-01 06:12] VITALS: BP 136/79
[2022-01-01] MEDS ORDERED: Multivitamins/Minerals TAB PO SCH (09:00)
== END 2022-01-01 08:15 | disposition left against medical advice (07) ==
LOC: EDHOLD 08:36 → ED 08:36 → EDHOLD 15:46 → MED 16:19
PROVIDERS: ADMIT Hospitalist; ATTEND Hospitalist

== ENCOUNTER 2022-01-04 08:25 | Observation (INO) ==
[2022-01-04 08:59] LABS: ABS Monocytes 0.5 10^3/ul (0-0.8); ABS Neutrophils 9.1 10^3/ul (1.5-7.7); Eosinophil % 0.2 %; Hematocrit 21 % (42-52); Hemoglobin 6.8 g/dL (14.0-18.0); Lymphocyte % 9.6 %; Mean Corpuscular HGB Conc 33 g/dL (31-36); Mean Corpuscular Hemoglobin 32 pg (27-31); Mean Corpuscular Volume 97 fL (80-94); Platelet Count 289 10^3/uL (150-450); Red Blood Count 2.15 10^6 /uL (4.18-5.48); Red Cell Distribution Width 15 % (10-15); White Blood Count 10.7 10^3/uL (3.5-10.8)
[2022-01-04 09:07] LABS: INR 1.14 (0.86-1.15)
[2022-01-04 10:21] LABS: Albumin 3.3 g/dL (3.2-5.2); Albumin/Globulin Ratio 1.2 (1-3); Globulin 2.7 g/dL (2-4); Total Bilirubin 0.4 mg/dL (0.2-1.0); eGFR CKD-EPI 86.7 (>60)
[2022-01-04 10:30] LABS: High Sensitivity Troponin 1 Hr 31 pg/mL (<20)
[2022-01-04] MEDS ORDERED: Pantoprazole VIAL 40 MG VIAL IV ONE ×2 (10:55→12:38)
[2022-01-04] MEDS ORDERED: Lactated Ringers 1000 ml BAG 1,000 ML IV SCH (11:00)
[2022-01-04 12:00] LABS: C Reactive Protein 8.27 mg/L (<8.01); HDL Cholesterol 54.1 mg/dL; Magnesium 1.9 mg/dL (1.9-2.7)
[2022-01-04] MEDS: Nicotine PATCH 14 MG/24 HR PATCH TRANSDERM SCH (12:03)
[2022-01-04] MEDS: Pantoprazole 80 mg in NS BAG 80 MG/250 ML BAG IV SCH ×2 (14:05→23:41)
[2022-01-04 17:40] LABS: Hemoglobin 6.4 g/dL (14.0-18.0)
[2022-01-04 17:41] LABS: ABS Eosinophils 0.1 10^3/ul (0-0.6); ABS Lymphocytes 1.7 10^3/ul (1.0-4.8); ABS Monocytes 0.7 10^3/ul (0-0.8); ABS Neutrophils 6.7 10^3/ul (1.5-7.7); Eosinophil % 0.7 %; Hematocrit 20 % (42-52); Lymphocyte % 18.5 %; Mean Corpuscular HGB Conc 32 g/dL (31-36); Mean Corpuscular Hemoglobin 31 pg (27-31); Mean Corpuscular Volume 95 fL (80-94); Mean Platelet Volume 7.1 fL (7.4-10.4); Platelet Count 262 10^3/uL (150-450); Red Blood Count 2.08 10^6 /uL (4.18-5.48); Red Cell Distribution Width 15 % (10-15); White Blood Count 9.2 10^3/uL (3.5-10.8)
[2022-01-05 00:26] LABS: ABS Eosinophils 0.1 10^3/ul (0-0.6); ABS Lymphocytes 1.6 10^3/ul (1.0-4.8); ABS Monocytes 0.8 10^3/ul (0-0.8); ABS Neutrophils 5.8 10^3/ul (1.5-7.7); Eosinophil % 1.5 %; Hematocrit 22 % (42-52); Hemoglobin 7.1 g/dL (14.0-18.0); Lymphocyte % 19.1 %; Mean Corpuscular HGB Conc 32 g/dL (31-36); Mean Corpuscular Hemoglobin 30 pg (27-31); Mean Corpuscular Volume 94 fL (80-94); Mean Platelet Volume 7.2 fL (7.4-10.4); Platelet Count 243 10^3/uL (150-450); Red Blood Count 2.37 10^6 /uL (4.18-5.48); Red Cell Distribution Width 16 % (10-15); White Blood Count 8.3 10^3/uL (3.5-10.8)
[2022-01-05 06:40] LABS: ABS Eosinophils 0.1 10^3/ul (0-0.6); ABS Lymphocytes 1.2 10^3/ul (1.0-4.8); ABS Monocytes 0.7 10^3/ul (0-0.8); ABS Neutrophils 5.3 10^3/ul (1.5-7.7); Eosinophil % 1.3 %; Hematocrit 22 % (42-52); Hemoglobin 7.3 g/dL (14.0-18.0); Lymphocyte % 16.4 %; Mean Corpuscular HGB Conc 34 g/dL (31-36); Mean Corpuscular Hemoglobin 32 pg (27-31); Mean Corpuscular Volume 94 fL (80-94); Platelet Count 249 10^3/uL (150-450); Red Blood Count 2.33 10^6 /uL (4.18-5.48); Red Cell Distribution Width 16 % (10-15); White Blood Count 7.4 10^3/uL (3.5-10.8)
[2022-01-05] MEDS ORDERED: Thiamine 100 MG/ML 2 ml VIAL 100 MG in NS 0.9% 50 ML 50 ML IV SCH (08:00)
[2022-01-05 08:05] LABS: Calcium 7.5 mg/dL (8.6-10.3); eGFR CKD-EPI 99.2 (>60)
[2022-01-05] MEDS ORDERED: Propofol 10 MG/ML 20 ML BTL ONE (08:38)
[2022-01-05] MEDS ORDERED: fentaNYL 100 mcg/2 ml 50 MCG/ML VIAL ONE (08:38)
[2022-01-05] MEDS ORDERED: Lidocaine 2% PF 5 ML VIAL ONE (08:38)
[2022-01-05] MEDS ORDERED: Midazolam 5 mg/5 ml VIAL 1 mg/ml 5 ml VIAL (5 mg) ONE (08:38)
[2022-01-05] MEDS ORDERED: Pantoprazole VIAL 40 MG VIAL IV SCH (09:00)
[2022-01-05] MEDS: Nicotine PATCH 14 MG/24 HR PATCH TRANSDERM SCH (10:11)
[2022-01-05] MEDS: Pantoprazole VIAL 40 MG VIAL IV SCH (10:11)
[2022-01-05] MEDS: Pantoprazole 80 mg in NS BAG 80 MG/250 ML BAG IV SCH (11:44)
[2022-01-05 16:59] LABS: ABS Eosinophils 0.1 10^3/ul (0-0.6); ABS Lymphocytes 1.2 10^3/ul (1.0-4.8); ABS Monocytes 0.6 10^3/ul (0-0.8); ABS Neutrophils 7.9 10^3/ul (1.5-7.7); Eosinophil % 1.2 %; Hematocrit 23 % (42-52); Hemoglobin 7.6 g/dL (14.0-18.0); Lymphocyte % 12.1 %; Mean Corpuscular HGB Conc 33 g/dL (31-36); Mean Corpuscular Hemoglobin 31 pg (27-31); Mean Corpuscular Volume 95 fL (80-94); Mean Platelet Volume 7.1 fL (7.4-10.4); Platelet Count 248 10^3/uL (150-450); Red Blood Count 2.47 10^6 /uL (4.18-5.48); Red Cell Distribution Width 16 % (10-15); White Blood Count 9.9 10^3/uL (3.5-10.8)
[2022-01-05] MEDS ORDERED: Nicotine GUM 4MG FRUIT FLAVOR PO PRN (18:33)
[2022-01-06 05:01] LABS: ABS Eosinophils 0.2 10^3/ul (0-0.6); ABS Lymphocytes 1.3 10^3/ul (1.0-4.8); ABS Monocytes 0.6 10^3/ul (0-0.8); ABS Neutrophils 6.8 10^3/ul (1.5-7.7); Eosinophil % 1.8 %; Hematocrit 22 % (42-52); Hemoglobin 7.2 g/dL (14.0-18.0); Lymphocyte % 14.6 %; Mean Corpuscular HGB Conc 33 g/dL (31-36); Mean Corpuscular Hemoglobin 31 pg (27-31); Mean Corpuscular Volume 92 fL (80-94); Mean Platelet Volume 6.9 fL (7.4-10.4); Nucleated Red Blood Cells % 0.2; Platelet Count 253 10^3/uL (150-450); Red Blood Count 2.37 10^6 /uL (4.18-5.48); Red Cell Distribution Width 16 % (10-15); White Blood Count 8.9 10^3/uL (3.5-10.8)
[2022-01-06 05:46] LABS: Calcium 7.6 mg/dL (8.6-10.3); Magnesium 1.7 mg/dL (1.9-2.7); Potassium 3.7 mmol/L (3.5-5.0); eGFR CKD-EPI 102.3 (>60)
[2022-01-06 07:00] VITALS: BP 137/71
[2022-01-06] MEDS: Nicotine PATCH 14 MG/24 HR PATCH TRANSDERM SCH (08:07)
[2022-01-06] MEDS: Pantoprazole VIAL 40 MG VIAL IV SCH (08:38)
[2022-01-06] MEDS ORDERED: Multivitamins/Minerals TAB PO SCH (09:00)
== END 2022-01-06 09:05 | disposition left against medical advice (07) ==
LOC: ED 08:25 → EDHOLD 08:25 → SUATTDRO 10:26 → ICU 14:05
PROVIDERS: ADMIT Internal Medicine; ATTEND Internal Medicine
PROC: O.GIEGD (~2022-01-04)

== ENCOUNTER 2023-12-09 15:53 | Inpatient (IN) ==
[2023-12-09 17:05] LABS: ABS Lymphocytes 1.6 10^3/uL (1.0-4.8); ABS Monocytes 0.7 10^3/uL (0.0-1.1); ABS Neutrophils 6.7 10^3/uL (1.5-7.6); ABS Nucleated RBC 0.01 10^3/ul; Eosinophil % 0.1 %; Hematocrit 23.8 % (38-53); Lymphocyte % 17.9 %; Mean Corpuscular Hemoglobin 32.5 pg (27-33); Mean Corpuscular Hgb Conc 33.7 g/dL (31-36); Mean Corpuscular Volume 96.3 fL (80-97); Mean Platelet Volume 8.3 fL (7.5-11.2); Nucleated Red Blood Cells % 0.1 %/100WBC (0.0-0.8); Platelet Count 199 10^3/uL (150-450); Red Blood Count 2.47 10^6/uL (4.06-5.63); Red Cell Distribution Width 13.1 % (12-17)
[2023-12-09 18:18] LABS: ALT 21 U/L (7-52); Albumin 3.8 g/dL (3.2-5.2); Albumin/Globulin Ratio 1.2 (1-3); Alkaline Phosphatase 55 U/L (35-149); Anion Gap 10 mmol/L (2-16); Blood Urea Nitrogen 36 mg/dL (6-24); CO2 Carbon Dioxide 22 mmol/L (22-32); Calcium 8.5 mg/dL (8.6-10.3); Chloride 105 mmol/L (101-111); Creatinine, Serum 1.09 mg/dL (0.67-1.17); Globulin 3.2 g/dL (2-4); Glucose 116 mg/dL (70-100); Sodium 137 mmol/L (135-145); Total Bilirubin 0.5 mg/dL (0.2-1.0); eGFR CKD-EPI 76.3 (>60)
[2023-12-09 20:12] LABS: High Sensitivity Troponin 1 Hr 6 pg/mL (<20)
[2023-12-09 22:43] LABS: Hematocrit 19.6 % (38-53); Hemoglobin 6.7 g/dL (13.2-16.3)
[2023-12-10 07:45] LABS: ABS Lymphocytes 1.8 10^3/uL (1.0-4.8); ABS Monocytes 1.1 10^3/uL (0.0-1.1); ABS Neutrophils 9.2 10^3/uL (1.5-7.6); ABS Nucleated RBC 0.01 10^3/ul; Eosinophil % 0.2 %; Hematocrit 24.4 % (38-53); Hemoglobin 8.6 g/dL (13.2-16.3); Lymphocyte % 14.8 %; Mean Platelet Volume 7.7 fL (7.5-11.2); Platelet Count 173 10^3/uL (150-450); Red Cell Distribution Width 13.3 % (12-17); White Blood Count 12.2 10^3/uL (3.6-10.2)
[2023-12-10 08:32] LABS: Calcium 8.3 mg/dL (8.6-10.3); Creatinine, Serum 0.86 mg/dL (0.67-1.17); Potassium 4.3 mmol/L (3.5-5.0); eGFR CKD-EPI 97.3 (>60)
[2023-12-10 15:46] LABS: Ferritin 102.2 ng/mL (24-336)
[2023-12-10 15:53] LABS: Folate 14.97 ng/mL (5.90-24.80)
[2023-12-10 16:45] LABS: ABS Basophils 0.3 10^3/uL (0.0-0.1); ABS Lymphocytes 1.4 10^3/uL (1.0-4.8); ABS Monocytes 1.3 10^3/uL (0.0-1.1); ABS Neutrophils 10.7 10^3/uL (1.5-7.6); ABS Nucleated RBC 0.01 10^3/ul; Hematocrit 24.1 % (38-53); Hemoglobin 8.4 g/dL (13.2-16.3); Lymphocyte % 10.1 %; Mean Corpuscular Hemoglobin 32.8 pg (27-33); Mean Corpuscular Hgb Conc 34.8 g/dL (31-36); Mean Corpuscular Volume 94.4 fL (80-97); Mean Platelet Volume 8.1 fL (7.5-11.2); Nucleated Red Blood Cells % 0.1 %/100WBC (0.0-0.8); Platelet Count 184 10^3/uL (150-450); Red Blood Count 2.55 10^6/uL (4.06-5.63); Red Cell Distribution Width 13.5 % (12-17); White Blood Count 13.8 10^3/uL (3.6-10.2)
[2023-12-10 18:04] LABS: High Sensitivity Troponin 1 Hr 7 pg/mL (<20)
[2023-12-10] MEDS: Lactated Ringers 1000 ml BAG 1,000 ML IV SCH (19:45)
[2023-12-10] MEDS: Amoxicillin/Clavul 875/125 TAB (Augmentin 875 tab) PO SCH (22:27)
[2023-12-11 06:00] LABS: ABS Lymphocytes 1.3 10^3/uL (1.0-4.8); ABS Monocytes 1.3 10^3/uL (0.0-1.1); ABS Nucleated RBC 0.01 10^3/ul; Eosinophil % 0.2 %; Hematocrit 22.5 % (38-53); Hemoglobin 7.7 g/dL (13.2-16.3); Lymphocyte % 9.4 %; Mean Corpuscular Hemoglobin 32.3 pg (27-33); Mean Corpuscular Hgb Conc 34.3 g/dL (31-36); Mean Corpuscular Volume 94.2 fL (80-97); Mean Platelet Volume 7.9 fL (7.5-11.2); Nucleated Red Blood Cells % 0.1 %/100WBC (0.0-0.8); Platelet Count 180 10^3/uL (150-450); Red Blood Count 2.39 10^6/uL (4.06-5.63); Red Cell Distribution Width 13.2 % (12-17); White Blood Count 13.6 10^3/uL (3.6-10.2)
[2023-12-11 06:04] LABS: Calcium 8.2 mg/dL (8.6-10.3); Creatinine, Serum 0.68 mg/dL (0.67-1.17); Magnesium 1.8 mg/dL (1.9-2.7); Potassium 3.9 mmol/L (3.5-5.0); eGFR CKD-EPI 104.4 (>60)
[2023-12-12 00:13] LABS: Hematocrit 22.4 % (38-53); Hemoglobin 7.6 g/dL (13.2-16.3)
[2023-12-12 08:51] LABS: ABS Lymphocytes 1.2 10^3/uL (1.0-4.8); ABS Monocytes 1.4 10^3/uL (0.0-1.1); ABS Neutrophils 9.8 10^3/uL (1.5-7.6); ABS Nucleated RBC 0.02 10^3/ul; Eosinophil % 0.3 %; Hematocrit 22.5 % (38-53); Hemoglobin 7.9 g/dL (13.2-16.3); Lymphocyte % 9.3 %; Mean Corpuscular Hemoglobin 33.2 pg (27-33); Mean Corpuscular Volume 94.8 fL (80-97); Mean Platelet Volume 7.1 fL (7.5-11.2); Nucleated Red Blood Cells % 0.1 %/100WBC (0.0-0.8); Platelet Count 241 10^3/uL (150-450); Red Blood Count 2.38 10^6/uL (4.06-5.63); Red Cell Distribution Width 13.3 % (12-17); White Blood Count 12.4 10^3/uL (3.6-10.2)
[2023-12-12] MEDS ORDERED: Sulfur Hexaflouride MICROSPHR 25 MG VIAL ONE (09:05)
[2023-12-12 09:28] LABS: Calcium 8.4 mg/dL (8.6-10.3); Creatinine, Serum 0.71 mg/dL (0.67-1.17); Potassium 4.1 mmol/L (3.5-5.0); eGFR CKD-EPI 103.1 (>60)
[2023-12-12] MEDS ORDERED: Benzocaine/Menthol LOZ PO PRN (16:39)
[2023-12-12] MEDS: Sulfur Hexaflouride MICROSPHR 25 MG VIAL IV ONE (20:41)
[2023-12-12] MEDS: Amoxicillin/Clavul 500/125 TAB (Augmentin 500 mg tab) PO SCH (21:09)
[2023-12-13 06:31] LABS: ABS Eosinophils 0.1 10^3/uL (0.0-0.5); ABS Lymphocytes 1.1 10^3/uL (1.0-4.8); ABS Monocytes 1.1 10^3/uL (0.0-1.1); ABS Neutrophils 7.5 10^3/uL (1.5-7.6); Eosinophil % 1.2 %; Hematocrit 22.1 % (38-53); Hemoglobin 7.8 g/dL (13.2-16.3); Lymphocyte % 11.5 %; Mean Corpuscular Hemoglobin 33.4 pg (27-33); Mean Corpuscular Hgb Conc 35.1 g/dL (31-36); Mean Corpuscular Volume 95.1 fL (80-97); Mean Platelet Volume 7.2 fL (7.5-11.2); Platelet Count 275 10^3/uL (150-450); Red Blood Count 2.32 10^6/uL (4.06-5.63); Red Cell Distribution Width 13.4 % (12-17); White Blood Count 9.9 10^3/uL (3.6-10.2)
[2023-12-13 07:25] LABS: Calcium 8.4 mg/dL (8.6-10.3); Creatinine, Serum 0.71 mg/dL (0.67-1.17); Magnesium 1.9 mg/dL (1.9-2.7); Potassium 4.3 mmol/L (3.5-5.0); eGFR CKD-EPI 103.1 (>60)
[2023-12-13] MEDS ORDERED: Regadenoson 0.4 MG/5 ML SYRINGE ONE (08:15)
[2023-12-13] MEDS ORDERED: Aminophylline 25 MG/ML VIAL ONE (08:15)
[2023-12-13 14:00] VITALS: BP 113/69
== END 2023-12-13 15:40 | DRG 151 ==
LOC: ED 15:53 → EDHOLD 15:53 → SUATTDRO 21:17 → EDHOLD 12-10 07:14 → MED 12-10 17:01
PROVIDERS: ADMIT Internal Medicine; ATTEND Family Medicine